=== PATIENT | female | born 1975 | race African-American/Black ===

== ENCOUNTER 2022-08-24 16:35 | Emergency (ER) | payer MEDICAID, OTHER ==
[~2022-08-24] VITALS: Ht 157.5 cm; Wt 55.0 kg
[2022-08-24 16:38] VITALS: BP 128/65
[2022-08-24] MEDS ORDERED: TETANUS AND DIPHTHERIA TOX/PF 0.5ML SYR (ADULT) IM ONE (17:15)
[2022-08-24] MEDS ORDERED: TETANUS, DIPHTHERIA, PERTUSSIS VAC/PF 0.5ML (>10YR OLD) IM ONE (17:30)
== END 2022-08-24 17:56 ==
LOC: ER 16:35
DX: S61.211A Laceration without foreign body of left index finger without damage to nail, initial encounter (principal); X99.1XXA Assault by knife, initial encounter; Y93.89 Activity, other specified; Y92.89 Other specified places as the place of occurrence of the external cause
CPT/HCPCS: 90471; 90714; 90715; 99283